=== PATIENT | male | born 1990 | race Caucasian/White ===

== ENCOUNTER 2016-04-13 09:44 | Emergency (ER) | payer BC ==
[~2016-04-13] VITALS: Ht 177.8 cm; Wt 72.6 kg
[2016-04-13 10:11] VITALS: BP 146/69; PULSE 89; RESP 16; TEMP 98.5; O2SAT 99
[2016-04-13 10:48] LABS: BLOOD, URINE NEGATIVE (NEGATIVE); CLARITY/URINE CLEAR (CLEAR); COLOR,URINE YELLOW (YELLOW); GLUCOSE,URINE NEGATIVE (NEGATIVE); KETONES,URINE NEGATIVE (NEGATIVE); LEUKOCYTE ESTERASE ,URINE NEGATIVE (NEGATIVE); NITRITE, URINE NEGATIVE (NEGATIVE); PROTEIN URINE NEGATIVE (NEGATIVE); UROBILINOGEN,URINE 0.2 (0.2-1.0)
[2016-04-13 10:51] LABS: BILIRUBIN,URINE NEGATIVE (NEGATIVE)
[2016-04-13 10:55] LABS: BASOPHILS # (AUTO) 0.1 K/uL (0.0-0.2); BASOPHILS % (AUTO) 0.8 % (0.0-2.0); EOSINOPHILS % (AUTO) 0.3 % (0.0-4.0); HEMATOCRIT 46.8 % (36-54); HEMOGLOBIN 15.4 g/dL (14.0-18.0); LYMPHOCYTES # (AUTO) 0.5 K/uL (1.0-5.5); LYMPHOCYTES % (AUTO) 7.4 % (20.5-51.5); MEAN CORPUSCULAR HEMOGLOBIN 29 pg (27-31); MEAN CORPUSCULAR HGB CONC 33 % (32-36); MEAN CORPUSCULAR VOLUME 88 fL (79.0-98.0); MONOCYTES # (AUTO) 0.3 K/uL (0.0-1.0); MONOCYTES % (AUTO) 5.2 % (1.7-9.3); NEUTROPHILS # (AUTO) 5.5 K/uL (1.8-7.7); NEUTROPHILS % (AUTO) 86.3 % (40.0-70.0); PLATELET COUNT (AUTO) 153 K/uL (130-430); RED BLOOD CELL COUNT(AUTO) 5.31 MIL/uL (4.2-6.2); RED CELL DISTRIBUTION WIDTH 12.1 % (9.0-15.0); WHITE BLOOD COUNT (AUTO) 6.4 K/uL (4.8-10.8)
[2016-04-13 11:02] LABS: CALCIUM 8.7 mg/dL (8.4-11.0); CREATININE 0.93 mg/dL (0.55-1.30); POTASSIUM 3.6 mmol/L (3.5-5.1)
[2016-04-13 11:19] LABS: ALBUMIN 4.2 g/dL (3.4-4.8); TOTAL BILIRUBIN 1.1 mg/dL (0.0-1.0); TOTAL PROTEIN, SERUM 7.6 g/dL (6.4-8.3)
[2016-04-13 12:31] VITALS: BP 146/69; PULSE 89; RESP 16; TEMP 98.5; O2SAT 99
== END 2016-04-13 12:31 | disposition home or self-care (01) ==
LOC: SED 09:44
DX: R59.1 Generalized enlarged lymph nodes (principal); R30.0 Dysuria
CPT/HCPCS: 36415; 80053; 81003; 83605; 85025; 86308-TC; 87040-TC; 99284

== ENCOUNTER 2016-12-13 18:25 | Emergency (ER) | payer BC ==
[~2016-12-13] VITALS: Ht 177.8 cm; Wt 70.3 kg
[2016-12-13 18:27] VITALS: BP_SYST 150
== END 2016-12-13 19:03 | disposition left against medical advice (07) ==
LOC: SED 18:25
DX: F41.9 Anxiety disorder, unspecified (principal); Z53.21 Procedure and treatment not carried out due to patient leaving prior to being seen by health care provider

== ENCOUNTER 2018-10-15 15:02 | Emergency (ER) | payer BC ==
--- NOTE | 2018-10-15 15:10 | NUR ---
Pt lwbs prior to triage.
[2018-10-15] MEDS ORDERED: NACL 0.9% 1,000 ML IV ONE (15:23)
[2018-10-15] MEDS ORDERED: ONDANSETRON HCL 4 MG/2 ML VIAL IVP ONE (15:30)
[2018-10-15] MEDS ORDERED: MORPHINE 4 MG/ML INJ. SYRINGE IVP ONE (15:30)
== END 2018-10-15 15:10 | disposition left against medical advice (07) ==
LOC: SED 15:02
DX: R10.9 Unspecified abdominal pain (principal); Z53.21 Procedure and treatment not carried out due to patient leaving prior to being seen by health care provider

== ENCOUNTER 2018-12-04 11:29 | Emergency (ER) | payer BC ==
[~2018-12-04] VITALS: Ht 152.4 cm; Wt 72.6 kg
[2018-12-04 11:30] VITALS: BP_SYST 134
--- NOTE | 2018-12-04 11:35 | NUR ---
Patient to ER bed 04 to gown for evaluation. Side rails up.
--- NOTE | 2018-12-04 11:36 | NUR ---
Patient is awake, alert, and oriented x4. Patient stated he was lifting buckets of sand at work outside when he started having chest pain and shortness of breath. Patient states he feels better now.
--- NOTE | 2018-12-04 11:37 | NUR ---
ER Dr. Flores at bedside examining patient.
[2018-12-04 12:59] VITALS: BP_SYST 132
--- NOTE | 2018-12-04 13:00 | NUR ---
Patient given written and verbal discharge instructions and verbalizes understanding. ER MD discussed with patient the results and treatment provided. Patient in stable condition. ID arm band removed. No Rx given. Patient educated on pain management and to follow up with PMD. Pain Scale 0/10 . Opportunity for questions provided and answered. Medication side effect fact sheet provided.
== END 2018-12-04 12:59 | disposition home or self-care (01) ==
LOC: SED 11:29
DX: F41.9 Anxiety disorder, unspecified (principal)
CPT/HCPCS: 93005; 99284

== ENCOUNTER 2019-04-05 07:12 | Emergency (ER) | payer BC ==
[~2019-04-05] VITALS: Ht 177.8 cm; Wt 72.6 kg
[2019-04-05 07:12] VITALS: BP_SYST 127
--- NOTE | 2019-04-05 07:15 | NUR ---
TRIAGED AND BROUGHT BACK TO BED #8, REPORT GIVEN TO NIALL
--- NOTE | 2019-04-05 07:50 | NUR ---
pt came to ER after dehydaration, and L flank pain 09/20. He is resting in bed comfortably awaiting
--- NOTE | 2019-04-05 08:10 | NUR ---
ER at bedside examining patient.
[2019-04-05] MEDS ORDERED: NACL 0.9% 1,000 ML IV ONE (08:15)
[2019-04-05 08:33] LABS: CALCIUM 8.3 mg/dL (8.4-11.0); CREATININE 0.87 mg/dL (0.55-1.30); POTASSIUM 3.7 mmol/L (3.5-5.1)
[2019-04-05 08:38] LABS: ALBUMIN 4.1 g/dL (3.4-4.8)
--- NOTE | 2019-04-05 09:20 | NUR ---
pt resting in bed no distress, no c/o of pain at this time
--- NOTE | 2019-04-05 10:00 | NUR ---
Patient given written and verbal discharge instructions and verbalizes understanding. ER MD discussed with patient the results and treatment provided. Patient in stable condition. ID arm band removed. IV catheter removed intact and dressing applied, no active bleeding. Rx of tamiflu, tessalon, and cepacol given. Patient educated on pain management and to follow up with PMD. Pain Scale 0. Opportunity for questions provided and answered. Medication side effect fact sheet provided.
[2019-04-05 10:04] VITALS: BP_SYST 126
== END 2019-04-05 10:00 | disposition home or self-care (01) ==
LOC: SED 07:12
DX: J11.1 Influenza due to unidentified influenza virus with other respiratory manifestations (principal)
CPT/HCPCS: 36415; 80053; 99283; J7030

== ENCOUNTER 2019-06-03 13:56 | Emergency (ER) | payer BC ==
[~2019-06-03] VITALS: Ht 177.8 cm; Wt 72.6 kg
[2019-06-03 13:58] VITALS: BP_SYST 140
[2019-06-03] MEDS ORDERED: IBUPROFEN 800 MG TABLET PO ONE (14:45)
[2019-06-03] MEDS ORDERED: BACITRACIN 1 GM OINT TP ONE (14:45)
[2019-06-03 15:09] VITALS: BP_SYST 140
== END 2019-06-03 15:09 | disposition home or self-care (01) ==
LOC: SED 13:56
DX: S50.811A Abrasion of right forearm, initial encounter (principal); M79.641 Pain in right hand; M25.521 Pain in right elbow; W18.39XA Other fall on same level, initial encounter; Y93.89 Activity, other specified; Y92.89 Other specified places as the place of occurrence of the external cause; Y99.8 Other external cause status
CPT/HCPCS: 73090; 99284

== ENCOUNTER 2021-02-24 11:43 | Emergency (ER) | payer BC ==
[~2021-02-24] VITALS: Ht 177.8 cm; Wt 72.6 kg
[2021-02-24 12:00] VITALS: BP_SYST 154
[2021-02-24] MEDS ORDERED: ONDANSETRON 4 MG ODT TAB PO ONE (12:45)
[2021-02-24 12:50] LABS: BASOPHILS % (AUTO) 0.5 % (0.0-2.0); EOSINOPHILS # (AUTO) 0.1 K/uL (0.0-0.4); HEMATOCRIT 46.1 % (36-54); HEMOGLOBIN 15.7 g/dL (14.0-18.0); LYMPHOCYTES # (AUTO) 1.3 K/uL (1.0-5.5); LYMPHOCYTES % (AUTO) 17.1 % (20.5-51.5); MEAN CORPUSCULAR HEMOGLOBIN 29 pg (27-31); MEAN CORPUSCULAR HGB CONC 34 % (32-36); MEAN CORPUSCULAR VOLUME 84 fL (79.0-98.0); MONOCYTES # (AUTO) 0.5 K/uL (0.0-1.0); NEUTROPHILS # (AUTO) 5.8 K/uL (1.8-7.7); NEUTROPHILS % (AUTO) 75.4 % (40.0-70.0); PLATELET COUNT (AUTO) 218 K/uL (130-430); RED CELL DISTRIBUTION WIDTH 13.4 % (9.0-15.0); WHITE BLOOD COUNT (AUTO) 7.7 K/uL (4.8-10.8)
[2021-02-24 12:59] LABS: CALCIUM 8.7 mg/dL (8.4-11.0)
[2021-02-24 13:05] LABS: ALBUMIN 4.1 g/dL (3.4-4.8)
[2021-02-24] MEDS ORDERED: FAMO-132 PO (13:28)
[2021-02-24] MEDS ORDERED: ONDA-8 TL (13:28)
[2021-02-24 13:40] VITALS: BP_SYST 122
--- NOTE | 2021-02-24 13:43 | NUR ---
Patient given written and verbal discharge instructions and verbalizes understanding. RIKA DELEON MD discussed with patient the results and treatment provided. Patient in stable condition. ID arm band removed. Rx of PEPCID AND ZOFRAN given. Patient educated on pain management and to follow up with PMD. Pain Scale 0. Opportunity for questions provided and answered. Medication side effect fact sheet provided.
== END 2021-02-24 13:40 | disposition home or self-care (01) ==
LOC: SED 11:43
DX: R10.13 Epigastric pain (principal); R11.10 Vomiting, unspecified; Z79.899 Other long term (current) drug therapy
CPT/HCPCS: 36415; 80053; 83690; 85025; 99283; Q0162

== ENCOUNTER 2022-04-14 22:53 | Emergency (ER) | payer BC ==
[~2022-04-14] VITALS: Ht 172.7 cm; Wt 77.1 kg
[~2022-04-14 22:53] MED LIST: FAMO-132 PO; ONDA-8 TL
[2022-04-14 23:04] VITALS: BP_SYST 156
[2022-04-15] MEDS ORDERED: LORazepam 1 MG TABLET PO ONE
[2022-04-15 00:05] LABS: BILIRUBIN,URINE NEGATIVE (NEGATIVE); BLOOD, URINE 2+ (NEGATIVE); COLOR,URINE YELLOW (YELLOW); GLUCOSE,URINE NEGATIVE (NEGATIVE); KETONES,URINE NEGATIVE (NEGATIVE); LEUKOCYTE ESTERASE ,URINE NEGATIVE (NEGATIVE); NITRITE, URINE NEGATIVE (NEGATIVE); PROTEIN URINE 1+ (NEGATIVE); UROBILINOGEN,URINE 0.2 (0.2-1.0)
[2022-04-15 00:08] LABS: CLARITY/URINE HAZY (CLEAR)
[2022-04-15 00:40] LABS: BACTERIA,URINE None Seen /HPF (None Seen); RBC,URINE 0-3 /HPF (0-3); WBC,URINE 0-3 /HPF (0-3)
[2022-04-15 00:42] LABS: CALCIUM OXALATE CRYSTALS,UR 0-10 /HPF (None Seen)
[2022-04-15 00:45] LABS: BENZODIAZEPINE, URINE POSITIVE (NEG <=150); METHAMPHETAMINES SCREEN,URINE POSITIVE (NEG <=500); URINE AMPHETAMINE POSITIVE (NEG <=500); URINE OXYCODONE SCREEN POSITIVE (NEG <=100)
[2022-04-15 00:46] LABS: BARBITURATE, URINE NEGATIVE (NEG <=200); CANNABINOID, URINE NEGATIVE (NEG <=50); COCAINE, URINE NEGATIVE (NEG <=150); OPIATE, URINE NEGATIVE (NEG <=100); PHENCYCLIDINE SCREEN,URINE NEGATIVE (NEG <=25); UR TRICYCLIC ANTIDEPRESSANTS NEGATIVE (NEG <=300); URINE METHADONE NEGATIVE (NEG <=200); URINE PROPOXYPHENE SCREEN NEGATIVE (NEG <=300)
[2022-04-15 01:13] VITALS: BP_SYST 121
== END 2022-04-15 01:14 | disposition home or self-care (01) ==
LOC: SED 22:53
DX: F11.90 Opioid use, unspecified, uncomplicated (principal); F15.10 Other stimulant abuse, uncomplicated; F41.9 Anxiety disorder, unspecified; R06.02 Shortness of breath; Z79.899 Other long term (current) drug therapy
CPT/HCPCS: 71045; 80307; 81000; 99285

== ENCOUNTER 2022-08-11 17:52 | Emergency (ER) | payer BC ==
[~2022-08-11] VITALS: Ht 177.8 cm; Wt 81.6 kg
[2022-08-11 17:52] VITALS: BP_SYST 157
[2022-08-11 18:50] LABS: BASOPHILS % (AUTO) 0.4 % (0.0-2.0); EOSINOPHILS % (AUTO) 0.6 % (0.0-4.0); HEMATOCRIT 45.9 % (36-54); HEMOGLOBIN 15.8 g/dL (14.0-18.0); LYMPHOCYTES # (AUTO) 1.7 K/uL (1.0-5.5); LYMPHOCYTES % (AUTO) 23.3 % (20.5-51.5); MEAN CORPUSCULAR HEMOGLOBIN 30 pg (27-31); MEAN CORPUSCULAR HGB CONC 35 % (32-36); MEAN CORPUSCULAR VOLUME 86 fL (79.0-98.0); MONOCYTES # (AUTO) 0.5 K/uL (0.0-1.0); MONOCYTES % (AUTO) 6.5 % (1.7-9.3); NEUTROPHILS # (AUTO) 4.9 K/uL (1.8-7.7); NEUTROPHILS % (AUTO) 69.2 % (40.0-70.0); PLATELET COUNT (AUTO) 187 K/uL (130-430); RED BLOOD CELL COUNT(AUTO) 5.31 MIL/uL (4.2-6.2); RED CELL DISTRIBUTION WIDTH 13.4 % (9.0-15.0); WHITE BLOOD COUNT (AUTO) 7.1 K/uL (4.8-10.8)
[2022-08-11 19:05] LABS: ANION GAP 5 (5-15); CHLORIDE 101 mmol/L (98-107); GFR AFRICAN AMERICAN 127 mL/min (>90); GLUCOSE 101 mg/dL (70-99); UREA NITROGEN, BLOOD 8 mg/dL (8-21)
[2022-08-11 19:18] LABS: ALANINE AMINOTRANSFERASE 19 U/L (12-78); ASPARTATE AMINOTRANSFERASE 13 U/L (10-37); THYROID STIMULATING HORMONE 1.98 uIu/mL (0.34-4.82); TOTAL BILIRUBIN 0.6 mg/dL (0.0-1.0)
[2022-08-11 19:59] VITALS: BP_SYST 122
== END 2022-08-11 19:59 | disposition home or self-care (01) ==
LOC: SED 17:52
DX: R07.89 Other chest pain (principal); G47.00 Insomnia, unspecified; M79.10 Myalgia, unspecified site; Z79.899 Other long term (current) drug therapy
CPT/HCPCS: 36415; 71045; 80053; 83880; 84439; 84443; 84484; 85025; 93005; 99285